=== PATIENT | female | born 1960 | race Caucasian/White ===

== ENCOUNTER → 2022-10-24 | Outpatient (CLI) | payer BC ==
[2022-10-24 11:22] LABS: BASO # 0.01 K/mm3 (0.02-0.10); EOS # 0.03 K/mm3 (0.04-0.40); EOS % 0.2 % (1.0-5.0); HEMATOCRIT 45.1 % (37.0-47.0); HEMOGLOBIN 15.1 g/dL (12.5-16.0); LYMPH# 1.99 K/mm3 (1.50-4.00); MEAN CELL VOLUME 90 fl (78-100); MEAN CORPUSCULAR HEMOGLOBIN 30 pg (27-31); MEAN CORPUSCULAR HGB CONC 34 g/dL (33-37); MEAN PLATELET VOLUME 8.8 fl (7.4-10.4); MONO # 0.64 K/mm3 (0.20-0.80); NEU # 12.29 K/mm3 (1.40-6.50); PLATELET COUNT 301 K/mm3 (130-400); RED BLOOD COUNT 5.02 M/mm3 (4.10-5.30)
[2022-10-24 11:32] LABS: POTASSIUM 3.6 mmol/L (3.5-5.1)
[2022-10-24 11:33] LABS: ALBUMIN 3.8 g/dL (3.5-5.0)
[2022-10-24 11:34] LABS: CALCIUM 9.4 mg/dL (8.3-10.5)
[2022-10-24 11:35] LABS: TOTAL PROTEIN 6.5 g/dL (6.4-8.3)
[2022-10-24 11:42] LABS: MAGNESIUM 2.15 mg/dL (1.60-2.60)
[2022-10-24 11:54] LABS: TOTAL BILIRUBIN 0.5 mg/dL (0.2-1.2)
[2022-10-24 12:15] LABS: D-DIMER 0.16 mg/L FEU (0.15-0.50)
[2022-10-24 12:25] LABS: ERYTHROCYTE SEDIMENTATION RATE 8 mm/hr (0-30)
[2022-10-24 23:01] LABS: IMMUNOGLOBULIN E, TOTAL 21 IU/mL (0-100)
== END ==
LOC: LAB 11:00
PROVIDERS: Internal Medicine
DX: K90.9 Intestinal malabsorption, unspecified (principal); E78.2 Mixed hyperlipidemia; R04.2 Hemoptysis; R06.00 Dyspnea, unspecified

== ENCOUNTER → 2022-10-28 | Outpatient (CLI) | payer BC | LOC: LAB 11:27 | DX: E78.2 Mixed hyperlipidemia (principal); F41.1 Generalized anxiety disorder; R04.2 Hemoptysis; J01.90 Acute sinusitis, unspecified; K90.9 Intestinal malabsorption, unspecified; E55.9 Vitamin D deficiency, unspecified; E53.8 Deficiency of other specified B group vitamins ==

== ENCOUNTER → 2022-10-31 | Outpatient (CLI) | payer BC | LOC: RAD 13:40 | DX: J43.2 Centrilobular emphysema (principal) | CPT/HCPCS: Q9967 ==

== ENCOUNTER → 2024-04-23 | Day surgery (SDC) | payer BC ==
[~2024-04-23] MED LIST: Iohexol 300 - 10 ML VIAL IV ONE; methylPREDNISolone acetate 80 MG/ML VIAL IJ ONE
== END ==
LOC: MSO 12:16
DX: M54.50 Low back pain, unspecified (principal); M53.3 Sacrococcygeal disorders, not elsewhere classified; M46.1 Sacroiliitis, not elsewhere classified
CPT/HCPCS: J0665; J1010; Q9967

== ENCOUNTER → 2024-05-24 | Outpatient (CLI) | payer BC ==
[~2024-05-24] MED LIST changes: +Gadoterate 20 ML VIAL IV ONE; -Iohexol 300 - 10 ML VIAL IV ONE; -methylPREDNISolone acetate 80 MG/ML VIAL IJ ONE
== END ==
LOC: RAD 10:14
DX: M16.11 Unilateral primary osteoarthritis, right hip (principal); R10.2 Pelvic and perineal pain
CPT/HCPCS: A9575

== ENCOUNTER → 2024-07-01 | Outpatient (CLI) | payer BC ==
[2024-07-01 12:49] LABS: URINE WBC 0 /hpf (0-3)
[2024-07-01 13:03] LABS: ALBUMIN 4.4 g/dL (3.4-4.8)
[2024-07-01 13:05] LABS: CALCIUM 9.6 mg/dL (8.3-10.5)
[2024-07-01 13:06] LABS: BASO # 0.03 K/mm3 (0.02-0.10); EOS # 0.23 K/mm3 (0.04-0.40); HEMATOCRIT 42.7 % (37.0-47.0); HEMOGLOBIN 14.5 g/dL (12.5-16.0); LYMPH# 2.16 K/mm3 (1.50-4.00); MEAN CELL VOLUME 89 fl (78-100); MEAN CORPUSCULAR HEMOGLOBIN 30 pg (27-31); MEAN CORPUSCULAR HGB CONC 34 g/dL (33-37); MONO # 0.57 K/mm3 (0.20-0.80); NEU # 4.61 K/mm3 (1.40-6.50); PLATELET COUNT 306 K/mm3 (130-400); RED BLOOD COUNT 4.81 M/mm3 (4.10-5.30); RED CELL DISTRIBUTION WIDTH 12.1 % (11.5-14.5); TOTAL PROTEIN 7.2 g/dL (6.2-8.1); WHITE BLOOD COUNT 7.6 K/mm3 (4.8-10.8)
[2024-07-01 13:08] LABS: TOTAL BILIRUBIN 0.5 mg/dL (0.2-1.2)
[2024-07-01 13:10] LABS: PROTHROMBIN TIME 10.3 SECONDS (9.0-12.0)
[2024-07-01 13:13] LABS: MAGNESIUM 1.85 mg/dL (1.60-2.60)
[2024-07-01 13:22] LABS: PH-URINE 6.5 (5.0 - 8.0); URINE APPEARANCE CLEAR (CLEAR); URINE BILIRUBIN NEGATIVE (NEGATIVE); URINE BLOOD NEGATIVE (NEGATIVE); URINE COLOR YELLOW (YELLOW); URINE GLUCOSE NEGATIVE (NEGATIVE); URINE KETONE NEGATIVE (NEGATIVE); URINE LEUKOCYTE ESTERASE NEGATIVE (NEGATIVE); URINE MUCUS PRESENT (NOT PRESENT); URINE NITRATE NEGATIVE (NEGATIVE); URINE PROTEIN(semi-quant) NEGATIVE (NEGATIVE)
== END ==
LOC: LAB 12:36
PROVIDERS: Internal Medicine
DX: Z01.818 Encounter for other preprocedural examination (principal); K90.9 Intestinal malabsorption, unspecified; R09.89 Other specified symptoms and signs involving the circulatory and respiratory systems

== ENCOUNTER → 2024-08-05 | Outpatient (CLI) | payer BC ==
[2024-08-05 16:30] LABS: PH-URINE 5.5 (5.0 - 8.0); URINE APPEARANCE CLOUDY (CLEAR); URINE BILIRUBIN 1+ (NEGATIVE); URINE COLOR YELLOW (YELLOW); URINE GLUCOSE TRACE (NEGATIVE); URINE KETONE TRACE (NEGATIVE); URINE NITRATE NEGATIVE (NEGATIVE); URINE PROTEIN(semi-quant) 3+ (NEGATIVE)
[2024-08-05 16:31] LABS: URINE BLOOD 3+ (NEGATIVE); URINE LEUKOCYTE ESTERASE 1+ (NEGATIVE); URINE MUCUS PRESENT (NOT PRESENT); URINE WBC >50 /hpf (0-3)
== END ==
LOC: LAB 15:55
PROVIDERS: Internal Medicine
DX: N39.0 Urinary tract infection, site not specified (principal)